=== PATIENT | male | born 1945 | race Caucasian/White ===

== ENCOUNTER → 2018-07-07 | Outpatient (CLI) | payer OTHER, BC ==
[~2018-07-07] VITALS: Ht 193 cm; Wt 117.9 kg
[~2018-07-07] MED LIST: ASPIR 8181 MG PO; LIPITOR10 MG PO; LISINOPRIL10 MG PO
--- NOTE | 2018-07-10 11:46 | P ---
[facility] [place] [address] PROCEDURE REPORT Name: SEBASTIANRUBIO Damaris Room #: REG [facility]#: [id number] Admission: 07/07/18 ������������������ Attend Phys: Aleksandr Gomez MD Discharge: ������������������ Date of : 47 Report #: [id number] THIS REPORT FOR: //name// CC: Aleksandr Sidhu BRIEF HISTORY: The patient is a 73-year-old male with history of multiple colon adenomas in the past. PREOPERATIVE DIAGNOSIS: High risk screening colonoscopy due to history of multiple colon adenomas. POSTOPERATIVE DIAGNOSES: 1. Rectal polyp. 2. Moderate diverticulosis coli. 3. Small internal hemorrhoids. MEDICATIONS: Propofol sedation per anesthesia. SPECIMEN: Rectal polyp. ESTIMATED BLOOD LOSS: 3 mL. PROCEDURE: Colonoscopy to cecum and terminal ileum with biopsy. FINDINGS: Prior to propofol sedation, the procedure of colonoscopy was discussed with the patient as well as potential risks and its complications. He indicates he understands and desires to proceed. DESCRIPTION OF PROCEDURE: With the patient in lateral decubitus position, digital examination was completed, which revealed no abnormalities. Subsequently, the Olympus video colonoscope was introduced in the rectum, advanced under direct vision to the cecum. Done with minimal difficulty. The cecum was identified by the ileocecal valve and the appendiceal orifice. I was able to visualize the distal segment of the terminal ileum, which was inspected and noted to be unremarkable. At that point, the scope was slowly withdrawn and careful circumferential views were obtained including retroflexion. Upon slow withdrawal of the scope, the prep was good, the mucosa was within normal limits, normal vascular pattern, normal light reflex. As we withdrew the scope, no abnormalities were noted. He had normal colonic mucosa until the left colon was reached. In the sigmoid colon, he was noted to have moderate diverticular disease without endoscopic evidence of diverticulitis. Scope was withdrawn in the rectum, a diminutive polyp was seen and removed with biopsy forceps. On retroflexion, small internal hemorrhoids were seen. Scope was withdrawn and the patient tolerated the procedure well. [address] [address] PROCEDURE REPORT Name: RUBIO CORTES Room #: REG [facility].#: [id number] Admission: 07/07/18 ������������������ Attend Phys: Aleksandr Gomez MD Discharge: ������������������ Date of : 47 Report #: [id number] CONDITION OF THE PATIENT UPON DISCHARGE: Following procedure, the patient drowsy, aroused, conversant and will be discharged home when fully ambulatory. INSTRUCTIONS TO THE PATIENT AND FAMILY AT THE TIME OF DISCHARGE: One diminutive polyp found and removed as described above. We will follow up on the path. However, in view of his family history and multiple adenomas in the past, he is to return for followup colonoscopy in 5 years. He will otherwise return to the care of Dr. Caity Prajapati and return to see me as needed. Last colonoscopy was about 4 years ago. Withdrawal time from the cecum was 20 minutes and 53 seconds. ��������������������������������������������� <ELECTRONICALLY SIGNED> ���������������������������������������� By: Aleksandr Gomez MD ��������������������������������������������� 07/10/18 [id number] Aleksandr Gomez MD /nt
--- NOTE | 2018-07-10 18:05 | PATH ---
[facility] [address] [place] [address] PATHOLOGY RPT PROCEDURE Name: RUBIO JAMESON Room #: REG [facility].#: [id number] ������������������ Admission: 07/07/18 ������������������ Date of : 47 Discharge: Report #: [id number] Path Case #: [id number] [facility] Accession Number: [id number] . 01 Material submitted: . rectum - BIOPSY POLYP AT RECTUM . 01 Clinical history: . Pre-OP DX: Hx polyps Post-OP DX: Rectal polyp . 02 Diagnosis: Polyp, at rectum, endoscopic biopsy: - Hyperplastic polyp. - Negative for dysplasia. (IUV:pit 07/10/2018) QTP/07/10/2018 . 02 Electronically signed: . Lisandra Cotton MD, Pathologist NPI- [id number] . 01 Gross description: . Received in formalin labeled "Rubio Jameson, BX polyp at rectum," is a single segment of ayala soft tissue measuring 0.4 cm in maximum dimension. The specimen is entirely submitted in cassette A1. (TSD; 07/07/2018) TOB/TOB . 02 Pathologist provided ICD-10: K62.1 . 02 CPT . 370996 Specimen Comment: A courtesy copy of this report has been sent to Specimen Comment: [phone], . Specimen Comment: Report sent to / DR CHEEMA Performed at: [address], [place] [id number] MD Triston Ren MD Phone: [phone] Performed at: [address] [id number] MD Lisandra Cotton MD Phone: [phone]
== END | disposition home or self-care (01) ==
LOC: GI 06:12
DX: Z12.11 Encounter for screening for malignant neoplasm of colon (principal); K62.1 Rectal polyp; K57.30 Diverticulosis of large intestine without perforation or abscess without bleeding; K64.8 Other hemorrhoids; Z68.31 Body mass index [BMI] 31.0-31.9, adult; I10 Essential (primary) hypertension; E78.00 Pure hypercholesterolemia, unspecified; Z98.890 Other specified postprocedural states; Z86.010 Personal history of colon polyps
CPT/HCPCS: 62110; 62900